=== PATIENT | female | born 1950 | race Caucasian/White ===

== ENCOUNTER 2017-12-13 15:06 | Emergency (ER) | payer MEDICARE, OTHER ==
[~2017-12-13] VITALS: Ht 154.9 cm; Wt 73.9 kg
[2017-12-13] MEDS ORDERED: METFORMIN HCL500 MG PO (15:18)
[2017-12-13] MEDS ORDERED: LISINOPRIL10 MG PO (15:18)
[2017-12-13] MEDS ORDERED: HYDROCODONE-AP1 EAC6 PO (15:45)
[2017-12-13 20:30] VITALS: BP 118/64
== END 2017-12-13 20:30 | disposition short-term general hospital (02) ==
LOC: M.ERS 15:06
DX: S32.19XA Other fracture of sacrum, initial encounter for closed fracture (principal); S22.088A Other fracture of T11-T12 vertebra, initial encounter for closed fracture; Y99.8 Other external cause status; E11.9 Type 2 diabetes mellitus without complications; W11.XXXA Fall on and from ladder, initial encounter; Y93.89 Activity, other specified; Y92.89 Other specified places as the place of occurrence of the external cause

== ENCOUNTER 2019-01-27 23:43 | Emergency (ER) | payer MEDICARE, OTHER ==
[~2019-01-27] VITALS: Ht 154.9 cm; Wt 77.1 kg
[~2019-01-27 23:43] MED LIST: HYDROCODONE-AP1 EAC6 PO; LISINOPRIL10 MG PO; METFORMIN HCL500 MG PO
[2019-01-28 01:59] VITALS: BP 144/85
== END 2019-01-28 01:59 | disposition home or self-care (01) ==
LOC: M.ERS 23:43
DX: H53.9 Unspecified visual disturbance (principal); H43.392 Other vitreous opacities, left eye; I10 Essential (primary) hypertension; E11.9 Type 2 diabetes mellitus without complications